=== PATIENT | male | born 1950 | race Caucasian/White ===

== ENCOUNTER 2017-12-01 15:53 | Inpatient (IN) ==
[2017-12-01] MEDS ORDERED: Naloxone 0.4 MG/ML INJ IVP PRN (19:55)
[2017-12-01] MEDS ORDERED: *HR* OxyCODONE Immed Rel 5 MG TABLET PO PRN (19:55)
[2017-12-01] MEDS ORDERED: Acetaminophen 325 MG TABLET PO PRN (19:55)
--- NOTE | 2017-12-01 20:08 | Internal Med History&Physical ---
Date of Encounter: 12/01/17 Time of Encounter: 19:20 Internal Medicine - H&P: HPI Chief complaint: SOB Admitted From: Hospital to Hospital Transfer Plans for Post Hospital Care: Home History of present illness: Mr. Mckeon is a 67 year old male who presents in transfer from [facility] ER. He presented there today with complaints of shortness of breath, especially with exertion. Symptoms started about 2 - 3 weeks ago and have progressively worsened. He was using his brother's oxygen for relief of dyspnea, but that did not help. Because of persistent and worsening dyspnea, he came to the ER for evaluation. He was found to have evidence of new onset atrial fibrillation with rapid ventricular response. He was started on Cardizem drip and transferred to [facility] for ongoing care. Upon my assessment of the patient, he is still short of breath and wheezing audibly. He denies any chest pain. Heart rate is down to between 90s to 120s presently and appears to be irregularly irregular on telemetry. He has never been diagnosed with any kind of heart disease or heart rhythm problems. He does not have a PCP and has not seen a doctor in quite some time. He takes no chronic medications other than occasional inhaler for his COPD. He denies any chest pain or pressure and only complains of shortness of breath, mostly with exertion. He does also state he had some left lower lower extremity swelling earlier in the week last week but that has resolved. He denies any generalized edema or anasarca. His daughter is present who also confirms the history. Past Med Surg Social Fam HX - Past Medical History Attestation: Yes The following information was validated with the patient. Source: patient, obtained from family, other ([place] [facility] records) Medical history: COPD Psychiatric history: no psych history - Past Surgical History Surgical History: tonsilectomy - Social History Smoking Status: Former smoker (smoked 50+ years; quit May,) Smokeless Tobacco Status: No Alcohol use: occasionally Drug use: none Occupational status: retired Current living situation: Home Activity Level: Independent ambulation Recent Out of Country Travel Within the Last 8 Weeks: No - Family History Mother Living Status: Hx Family Cardiac Disorders: No Hx Family Respiratory Disorders: No Hx Family Cancer: Yes (lung ) Father Living Status: Hx Family Cardiac Disorders: No Hx Family Respiratory Disorders: No Internal Medicine - H&P: Meds Albuterol Sulfate [Albuterol Inhaler] 1 puff IH Q4H PRN 12/01/17 [History] 3 Allergy/AdvReac Type Severity Reaction Status Date / Time No Known Allergies Allergy Verified 12/01/17 11:50 - Constitutional Constitutional: no chills, no fever(s), no night sweats - EENT Eyes: no blurry vision, no change in vision Ears: no ear pain, no tinnitus Nose, mouth and throat: no nasal congestion, no sinus pressure, no sore throat - Cardiovascular Cardiovascular ROS IM: dyspnea, dyspnea on exertion, edema (LLE ), lightheadedness, no chest pain, no palpitations, no paroxysmal nocturnal dyspnea , no syncope - Respiratory Respiratory: dyspnea, dyspnea on exertion, wheezing, no cough, no hemoptysis, no pain on inspiration, no chest congestion, no excessive phlegm production, no change in phlegm color, no pain with cough - Gastrointestinal Gastrointestinal: bloating, no abdominal pain, no constipation, no diarrhea, no melena, no nausea, no vomiting - Genitourinary Genitourinary ROS male: no dysuria, no flank pain, no hematuria - Musculoskeletal Musculoskeletal ROS IM: no back pain, no joint swelling, no muscle weakness, no myalgias - Integumentary Integumentary IM: no rash, no jaundice - Neurological Neurological ROS: no dizziness, no focal weakness, no frequent falls, no headache(s) - Psychiatric Psychiatric: no anxiety, no depression - Endocrine Endocrine IM: no polydipsia, no polyuria - Hematologic/Lymphatic Hematologic/Lymphatic: no easy bruising - Allergic/Immunologic Allergic/Immunologic: wheezing, no GI upset with certain foods - Constitutional General appearance: Present: cooperative, mild distress, A&O X 3, pleasant, answers questions appropriately - Head Head exam: Present: atraumatic, normal inspection - Eye Eye exam: Present: EOMI, normal appearance, PERRL. Absent: scleral icterus Pupils: Present: normal accommodation - ENT ENT exam: Present: mucous membranes dry, normal exam, normal oropharynx - Neck Neck exam general surgery: Present: full ROM, supple. Absent: lymphadenopathy, thyromegaly - Expanded Neck Exam Neck exam: Absent: carotid bruit - Respiratory Respiratory exam: Present: decreased breath sounds, prolonged expiratory phase, respiratory distress (mild), wheezes, tachypnea. Absent: chest wall tenderness , rales, rhonchi - Cardiovascular Cardiovascular exam: Present: distant heart sounds, irregular rhythm, tachycardia (90-110's). Absent: diastolic murmur, JVD, systolic murmur - GI/Abdominal GI/Abdominal exam: Present: normal bowel sounds, soft. Absent: guarding, hepatomegaly, rebound, splenomegaly, tenderness - Extremities Exam Extremities exam: Present: full ROM, normal capillary refill, warm, radial pulses palpable and symmetrical. Absent: calf tenderness, joint swelling, pedal edema, tenderness Additional comments: BLE appears symmetrical and without any appreciable edema - Back Exam Back exam: Present: normal inspection. Absent: CVA tenderness (L), CVA tenderness (R) - Neurological Exam Neurological exam: Present: alert, oriented X3, no focal deficits - Psychiatric Psychiatric exam: Present: normal affect, normal mood - Skin Skin exam: Present: dry, warm. Absent: rash Internal Med - H&P Results - Labs Labs: I reviewed the labs from [place] and include the following: WBC 8.5 Hemoglobin 15.8 Hematocrit 48.2 Platelet 331 Differential normal PT 11.8 INR 1.1 Sodium 138 Potassium 4.5 Chloride 101 Carbon Dioxide 31 BUN 15 Creatinine 1.02 Troponin less than 0.03 EKG read as atrial fibrillation with rapid ventricular response per cardiology - - EKG is not available for personal review. - Diagnostic Studies Chest x-ray Status: image reviewed by me (negative) - Assessment and plan (1) Atrial fibrillation with RVR Current Visit: Yes Status: Acute Assessment and plan: 1. Will start low dose Beta xuan and monitor closely. 2. Will trend troponins, EKG's, and order ECHO. 3. Consult cardiology due to new onset Atrial Fibrillation and possible candidate for cardioversion. 4. Will need stress test and/or LHC in the near future once acute process stabilized -- can be done as outpatient. (2) Acute exacerbation of chronic obstructive pulmonary disease (COPD) Current Visit: Yes Status: Acute Assessment and plan: 1. Will treat with IV steroids and Xopenex aerosols (due to new onset atrial fibrillation). 2. I do not appreciate the need for antibiotics at this time as I do not suspect an infectious process. 3. Monitor clinically. 4. Oxygen as needed for support. (3) Edema of left lower extremity Current Visit: Yes Status: Suspected Assessment and plan: 1. Will order BLE Dopplers. 2. On exam, I do not appreciate any asymmetry. Nonetheless, will order Dopplers as above. 3. If Dopplers positive for DVT, patient will need work-up/imaging to rule out PE. (4) DVT prophylaxis Current Visit: Yes Status: Acute Assessment and plan: 1. Full dose Lovenox to be started tonight due to new onset atrial fibrillation (1mg/kg/dose).
[2017-12-01] MEDS: *HR* Enoxaparin 100 MG/ML SYRINGE SQ SCH (20:30)
[2017-12-01] MEDS: Levalbuterol Neb 1.25 MG/3 ML IH SCH ×2 (22:04→22:05)
[2017-12-02 02:10] LABS: Basophils % 0.5 %; Eosinophils # 0.1 K/mcL (0.0-0.6); Eosinophils % 1.4 %; Hematocrit 42.3 % (37.5-50.1); Hemoglobin 13.8 g/dL (12.9-16.9); Immature Granulocytes % 0.4 % (0-4); Lymphocytes # 2.8 K/mcL (0.6-4.6); Lymphocytes % 37.4 %; Mean Corpuscular HGB Conc 32.6 g/dL (31.6-35.5); Mean Corpuscular Hemoglobin 29.6 pg (28.0-33.3); Mean Corpuscular Volume 90.8 fL (83.0-100.0); Mean Platelet Volume 8.8 fL (9.4-12.4); Monocytes # 0.7 K/mcL (0.0-1.3); Monocytes % 8.6 %; Neutrophils # 3.9 K/mcL (1.6-8.9); Platelet Count 287 K/mcL (140-400); Red Blood Count 4.66 M/mcL (4.19-5.50); Red Cell Distribution Width 12.8 % (11.5-14.5); Segmented Neutrophils % 51.7 %
[2017-12-02 02:17] LABS: INR 1.1; Prothrombin Time 12.1 Seconds (9.4-12.1)
[2017-12-02 02:19] LABS: Activated Partial Thrombo Time 42.2 Seconds (26.0-36.0)
[2017-12-02 02:29] LABS: Alanine Aminotransferase 17 Units/L (7-52); Albumin 3.5 g/dL (3.5-5.7); Albumin/Globulin Ratio 1.3 (1.1-2.2); Alkaline Phosphatase 50 Units/L (34-104); Aspartate Amino Transferase 13 Units/L (13-39); BUN/Creatinine Ratio 14 (6-26); Bilirubin,Total 0.5 mg/dL (0.3-1.0); Blood Urea Nitrogen 13 mg/dL (8-23); Calcium 8.8 mg/dL (8.6-10.3); Carbon Dioxide 28 mEq/L (23-29); Chloride 104 mEq/L (98-107); Chol/HDL Ratio 3.4 (0-4.9); Cholesterol 182 mg/dL (< 200); Globulin 2.7 g/dL (2.4-3.5); Glucose 108 mg/dL (70-105); HDL Cholesterol 53 mg/dL (40-59); LDL Cholesterol,Calculated 107 mg/dL (0-99); Osmolality,Calculated 285 (280-300); Potassium 4.3 mEq/L (3.5-5.1); Sodium 137 mEq/L (136-145); Total Protein 6.2 g/dL (6.4-8.9); Triglycerides 112 mg/dL (< 150); eGFR For African Americans > 60 (> 60); eGFR For Non-African Americans > 60 (> 60)
[2017-12-02] MEDS: Levalbuterol Neb 1.25 MG/3 ML IH SCH ×4 (03:29→22:24)
[2017-12-02] MEDS: *HR* Enoxaparin 100 MG/ML SYRINGE SQ SCH (05:09)
[2017-12-02] MEDS ORDERED: methylPREDNISolone 125 MG/2 ML VIAL IVP SCH (06:00)
--- NOTE | 2017-12-02 09:35 | Cardiology Consult Note ---
Date of Encounter: 12/02/17 Time of Encounter: 09:33 Assessment and Plan (1) Atrial fibrillation with RVR Current Visit: Yes Status: Acute New onset A-Fib RVR in setting of COPD exacerbation--likely driving factor. K 4.3, Mag 2.0, check TSH. HR at bedside 140s. Currently only on PO Lopressor 12.5mg BID. Give Cardizem bolus 10mg once, then start Cardizem gtt in attempt to rate control. Daughter at bedside, reports last night while sleeping his oxygen would drop into the 80s, snoring. Suspect underlying ARSENIO, recommend outpt sleep study. TTE to evaluate structure and function once better rate controlled. Troponins negative x 3. [id number] is 1 (Age). Currently on therapeutic lovenox. If [id number] remains a 1, ASA only. Continue to follow. Discussion w patient/family: The assessment and plan as outlined above was discussed with the patient and/or family members who expressed understanding and agreement. All questions were answered. Thank you for involving us in the care of your patient. Please call with any questions. I will discuss all the above with Dr. Tirado and make changes as necessary. History of Present Illness Consult date: 12/02/17 Requesting physician: Anil Koehler Consult reason: A-Fib RVR Chief complaint: dyspnea History of present illness: Mr. Mckeon is a 67 year old male with known PMH of prior tobacco abuse that presented in transfer from [place] ER after presenting with complaints of shortness of breath, worse on exertion. Symptoms started about 2-3 weeks ago and have progressively worsened. He was found to have new onset A-Fib RVR. Cardiology consulted for further recs. Pt also diagnosed with COPD exacerbation. Pt denies chest pain or palpitations. Reports he had unilateral leg swelling in his left leg, now resolved. He does not have a PCP, has not been seen by a provider in some time. No known prior cardiac hx. HR at bedside 140s, A-Fib. Past Med Surg Social Fam HX - Past Medical History Medical history: COPD Psychiatric history: no psych history - Past Surgical History Surgical History: tonsilectomy - Social History Smoking Status: Former smoker (smoked 50+ years; quit May,) Smokeless Tobacco Status: No Alcohol use: occasionally Drug use: none - Family History Mother Living Status: Hx Family Cardiac Disorders: No Hx Family Respiratory Disorders: No Hx Family Cancer: Yes (lung ) Father Living Status: Hx Family Cardiac Disorders: No Hx Family Respiratory Disorders: No Medications and Allergies Albuterol Sulfate [Albuterol Inhaler] 1 puff IH Q4H PRN 12/01/17 [History] 3 Allergy/AdvReac Type Severity Reaction Status Date / Time No Known Allergies Allergy Verified 12/01/17 11:50 All Systems Review: The remainder of the systems were reviewed and are negative - Cardiovascular Cardiovascular: as per HPI, dyspnea at rest, dyspnea on exertion, leg edema - Respiratory Respiratory: dyspnea Physical Examination Vital Signs, Last 4 Hours Temp Pulse Resp BP Pulse Ox 12/02/17 06:41 97.9 F 125 18 120/84 97 Vital Signs Temp Pulse Resp BP Pulse Ox 12/02/17 06:41 97.9 F 125 18 120/84 97 12/02/17 04:40 97.8 F 110 20 101/73 94 12/02/17 03:29 17 97 12/01/17 23:42 97.8 F 114 20 109/84 97 12/01/17 22:05 17 126/98 97 12/01/17 20:30 97 12/01/17 20:14 98.6 F 107 19 126/98 97 Intake and Output 12/01/17 12/02/17 12/02/17 23:59 07:59 15:59 Intake Total 360 / 360 Output Total 200 / 200 Balance -200 / -200 360 / 360 Intake: Oral 360 / 360 Output: Urine 200 / 200 Other: Meal Breakfast Percent of Meal Consumed 100% Weight 92.7 kg 91.9 kg Blood Glucose* 102 Patient Weight 12/02/17 23:59 Weight 91.9 kg General: Conversant, No Apparent Distress HEENT: Atraumatic, Normocephaly, Mucus Membranes Moist Neck: No JVD, Normal carotid pulses Cardiac: Other (irregularly irregular) Lungs: Other (diminished) Neuro: Alert and responsive, No focal deficits noted Abdomen: Soft, Non-Tender Skin: No rashes noted on visualized skin Musculoskeletal: No Chest Wall Tenderness Extremities: No Clubbing, No Cyanosis, No Edema, Normal Pulses Results 12/02/17 01:58 12/02/17 01:58 Lab Results 12/01/17 12/02/17 12/02/17 20:21 01:58 01:58 WBC 7.6 Hgb 13.8 D Hct 42.3 Plt Count 287 INR APTT Sodium Potassium Chloride Carbon Dioxide BUN Creatinine Glucose Calcium Magnesium Total Bilirubin AST ALT Alkaline Phosphatase Troponin I < 0.03 < 0.03 12/02/17 12/02/17 12/02/17 01:58 01:58 07:17 WBC Hgb Hct Plt Count INR 1.1 APTT 42.2 H Sodium 137 Potassium 4.3 Chloride 104 Carbon Dioxide 28 BUN 13 Creatinine 0.90 Glucose 108 H Calcium 8.8 Magnesium 2.0 Total Bilirubin 0.5 AST 13 ALT 17 Alkaline Phosphatase 50 Troponin I < 0.03 Short CBC 12/02/17 Range/Units 01:58 WBC 7.6 (4.3-11.1) K/mcL Hgb 13.8 D (12.9-16.9) g/dL Hct 42.3 (37.5-50.1) % Plt Count 287 (140-400) K/mcL Neutrophils # 3.9 (1.6-8.9) K/mcL BMP 12/02/17 Range/Units 01:58 Sodium 137 (136-145) mEq/L Potassium 4.3 (3.5-5.1) mEq/L Chloride 104 (98-107) mEq/L Carbon Dioxide 28 (23-29) mEq/L BUN 13 (8-23) mg/dL Creatinine 0.90 (0.70-1.30) mg/dL Glucose 108 H (70-105) mg/dL Calcium 8.8 (8.6-10.3) mg/dL Cardiac Enzymes 12/02/17 12/02/17 12/01/17 Range/Units 07:17 01:58 20:21 Troponin I < 0.03 < 0.03 < 0.03 (< 0.04) ng/mL Liver Function 12/02/17 Range/Units 01:58 Total Bilirubin 0.5 (0.3-1.0) mg/dL AST 13 (13-39) Units/L ALT 17 (7-52) Units/L Alkaline Phosphatase 50 (34-104) Units/L Albumin 3.5 (3.5-5.7) g/dL Active Medications Acetaminophen (Tylenol) 650 mg PO Q6HR PRN PRN Reason: Mild Pain/Fever Stop: 06/02/18 19:56 Aspirin (Aspirin) 81 mg PO DAILY [facility] Stop: 06/03/18 09:01 Enoxaparin Sodium (Lovenox) 90 mg 1 mg/kg (90 mg) SQ Q12HR DOUGLAS PRN Reason: Protocol Stop: 06/02/18 20:00 Last Admin: 12/02/17 05:09 Dose: 90 mg Diltiazem HCl 125 mg/ Sodium (Chloride) 125 mls @ 5 mls/hr IVC .Q24H DOUGLAS; 5 MG/ HR PRN Reason: Protocol Stop: 06/03/18 09:46 Levalbuterol HCl (Xopenex) 1.25 mg IH [id number] [facility] Stop: 06/02/18 20:01 Last Admin: 12/02/17 03:29 Dose: 1.25 mg Methylprednisolone (Solu-Medrol) 60 mg IVP Q12HR DOUGLAS Stop: 06/03/18 06:01 Last Admin: 12/02/17 05:09 Dose: 60 mg Metoprolol Tartrate (Lopressor) 12.5 mg PO BID [facility] Stop: 06/02/18 20:01 Last Admin: 12/01/17 22:36 Dose: Not Given Metoprolol Tartrate (Lopressor) 5 mg IVP Q5MIN [facility] Stop: 12/04/17 09:16 Naloxone HCl (Narcan) 0.4 mg IVP Q2MIN PRN PRN Reason: SEE COMMENTS Stop: 06/02/18 19:56 Oxycodone HCl (Roxicodone) 5 mg PO Q6HR PRN PRN Reason: Chest Pain Stop: 06/02/18 19:56 - EKG Interpretation EKG results cardiology: personally reviewed (A-Fib RVR HR 140s), other (12 hr tele AVG HR 105, A-Fib) Consult Discharge Plan - Plan Referrals: NONE,PCP [Primary Care Provider] - Cuba Carlson [Family Provider] -
[2017-12-02] MEDS: Aspirin 81 MG TAB.CHEW PO SCH (09:47)
[2017-12-02] MEDS: *HR* Metoprolol 5 MG/5 ML VIAL IVP SCH ×3 (09:49→10:36)
--- NOTE | 2017-12-02 13:40 | Pulmonology Consult Note ---
Date of Encounter: 12/02/17 Past Med Surg Social Fam HX - Past Medical History Medical history: COPD Psychiatric history: no psych history - Past Surgical History Surgical History: tonsilectomy - Social History Smoking Status: Former smoker (smoked 50+ years; quit May,) Smokeless Tobacco Status: No Alcohol use: occasionally Drug use: none - Family History Mother Living Status: Hx Family Cardiac Disorders: No Hx Family Respiratory Disorders: No Hx Family Cancer: Yes (lung ) Father Living Status: Hx Family Cardiac Disorders: No Hx Family Respiratory Disorders: No Medications and Allergies Albuterol Sulfate [Albuterol Inhaler] 1 puff IH Q4H PRN 12/01/17 [History] 3 Allergy/AdvReac Type Severity Reaction Status Date / Time No Known Allergies Allergy Verified 12/01/17 11:50 All Systems: The remainder of the systems were reviewed and are negative Physical Examination Vital Signs: Vital Signs, Last 4 Hours Temp Pulse Resp BP Pulse Ox 12/02/17 11:41 18 93 12/02/17 11:19 97.7 F 82 18 108/78 93 Results - Laboratory Findings CBC and BMP: 12/02/17 01:58 12/02/17 01:58 PT/INR, D-dimer PT 12.1 Seconds (9.4-12.1) 12/02/17 01:58 Abnormal lab findings: Abnormal lab results MPV 8.8 fL (9.4-12.4) L 12/02/17 01:58 APTT 42.2 Seconds (26.0-36.0) H 12/02/17 01:58 Glucose 108 mg/dL (70-105) H 12/02/17 01:58 Serum Total Protein 6.2 g/dL (6.4-8.9) L 12/02/17 01:58 LDL Cholesterol, Calc 107 mg/dL (0-99) H 12/02/17 01:58 - Clinical Findings Intake & Output: Intake & Output 12/01/17 12/02/17 12/02/17 23:59 07:59 15:59 Intake Total 360 / 360 Output Total 200 / 200 Balance -200 / -200 360 / 360 Weight 92.7 kg 91.9 kg Consult Discharge Plan - Plan Referrals: NONE,PCP [Primary Care Provider] - Cuba Carlson [Family Provider] -
[2017-12-02] MEDS ORDERED: Levalbuterol 1 PUFF INHALER IH PRN (14:11)
--- NOTE | 2017-12-02 14:13 | Pulmonology Consult Note ---
Addendum entered and electronically signed by Yunior Ceballos DO 12/02/17 15:36 : After further review, will d/c the prednisone. Addendum entered and electronically signed by Yunior Ceballos DO 12/02/17 15:18 : Recommend prednisone 60mg Daily x 5 days and d/c Original Note: <Yunior Ceballos - Last Filed: 12/02/17 14:37> Date of Encounter: 12/02/17 Time of Encounter: 14:09 Assessment and Plan (1) COPD (chronic obstructive pulmonary disease) Current Visit: Yes Status: Chronic Patient reports a diagnosis of COPD approximately 2 years ago. Former smoker with 50+ pack year history. Patient's been tobacco free for approximately a year. Chest x-ray on 12/01/17 reviewed that shows no acute intrathoracic process. Patient denies being prescribed home oxygen therapy. Patient does note improvement with aerosols. The patient's dyspnea is likely multifactorial in the setting of A. fib RVR with underlying COPD. Lower extremity Doppler was negative. The patient is not describing in increase or change in purulent sputum. At this point recommend against antibiotics. Consider if the patient has a fever, increased work of breathing, change or increase in sputum production. PLAN: -Agree with Solu-Medrol 60mg BID -Aerosols with Xopenex scheduled and prn. (Once adequate rate control may consider duonebs with albuterol) -Spiriva 18mg IH. -Titrate oxygen 92%-97% as needed- anticipate home oxygen -Recommend to follow up with Pulmonary upon discharge. Qualifiers: COPD type: unspecified COPD Qualified Code(s): J44.9 - Chronic obstructive pulmonary disease, unspecified History of Present Illness Consult date: 12/02/17 Requesting physician: Eugene Tirado Reason for consult: COPD Chief complaint: Dyspnea History of present illness: 67-year-old male former smoker with history of COPD diagnosed 2 years ago presents for evaluation of dyspnea. Patient was transferred from the [facility]. Patient states that he has felt short of breath since June of last year. States that his shortness of breath is mostly with exertion. Patient states that he has been using an inhaler at home which seems to intermittently improve his symptoms. Denies any fevers. Denies any chest pain. Patient notes productive sputum this morning but is otherwise been nonproductive. States these are former smoker with a 50+ pack year history. Patient states that he quit smoking approximately a year ago. Denies use of CPAP or prescribed oxygen therapy at home. States that he has been using his brothers oxygen at home as needed. Patient denies any history of A. fib or irregular heart rhythm. Patient also denies history of heart attacks. 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 Reports a family history of pulmonary fibrosis. Past Med Surg Social Fam HX - Past Medical History Medical history: COPD Psychiatric history: no psych history - Past Surgical History Surgical History: tonsilectomy - Social History Smoking Status: Former smoker (smoked 50+ years; quit May,) Smokeless Tobacco Status: No Alcohol use: occasionally Drug use: none - Family History Mother Living Status: Hx Family Cardiac Disorders: No Hx Family Respiratory Disorders: No Hx Family Cancer: Yes (lung ) Father Living Status: Hx Family Cardiac Disorders: No Hx Family Respiratory Disorders: No Medications and Allergies Albuterol Sulfate [Albuterol Inhaler] 1 puff IH Q4H PRN 12/01/17 [History] 3 Allergy/AdvReac Type Severity Reaction Status Date / Time No Known Allergies Allergy Verified 12/01/17 11:50 All Systems: The remainder of the systems were reviewed and are negative - Constitutional Constitutional: as per HPI, no fever(s) - EENT Eyes: as per HPI - Cardiovascular Cardiovascular: as per HPI, dyspnea, dyspnea on exertion, no chest pain, no chest pain at rest, no chest pain with activity - Respiratory Respiratory: cough, dyspnea, dyspnea on exertion, no change in phlegm color - Gastrointestinal Gastrointestinal: as per HPI - Genitourinary Genitourinary: as per HPI - Neurological Neurological: as per HPI Physical Examination Vital Signs: Vital Signs, Last 4 Hours Temp Pulse Resp BP Pulse Ox 12/02/17 11:41 18 93 12/02/17 11:19 97.7 F 82 18 108/78 93 General appearance: no acute distress Eyes: nonicteric ENT: oropharynx moist Neck: supple Effort: normal Inspection: normal Auscultation: bilateral: diminished breath sounds (prolonged expiratory phase) Cardiovascular: irregular rhythm Gastrointestinal: normoactive bowel sounds Integumentary: normal Extremities: no cyanosis Musculoskeletal: no deformities normal mental status, non-focal exam mood appropriate Results - Laboratory Findings CBC and BMP: 12/02/17 01:58 12/02/17 01:58 PT/INR, D-dimer PT 12.1 Seconds (9.4-12.1) 12/02/17 01:58 Abnormal lab findings: Abnormal lab results MPV 8.8 fL (9.4-12.4) L 12/02/17 01:58 APTT 42.2 Seconds (26.0-36.0) H 12/02/17 01:58 Glucose 108 mg/dL (70-105) H 12/02/17 01:58 Serum Total Protein 6.2 g/dL (6.4-8.9) L 12/02/17 01:58 LDL Cholesterol, Calc 107 mg/dL (0-99) H 12/02/17 01:58 - Diagnostic Findings Chest x-ray: report reviewed, image reviewed - Clinical Findings Intake & Output: Intake & Output 12/01/17 12/02/17 12/02/17 23:59 07:59 15:59 Intake Total 600 / 600 Output Total 200 / 200 Balance -200 / -200 600 / 600 Weight 92.7 kg 91.9 kg Consult Discharge Plan - Plan Referrals: NONE,PCP [Primary Care Provider] - Cuba Carlson [Family Provider] - Amy Paul MD [Partnered Physician] - <Amy Paul - Last Filed: 12/02/17 16:08> Date of Encounter: 12/02/17 Assessment and Plan (1) Suspected sleep apnea Current Visit: Yes Status: Suspected Sleep study will be done as outpatient and explained to patient and also his daughter at the bedside about diagnosis and treatment of sleep apnea especially with patient with atrial fibrillation. All Systems: The remainder of the systems were reviewed and are negative Physical Examination Vital Signs: Vital Signs, Last 4 Hours Temp Pulse Resp BP Pulse Ox 12/02/17 16:00 97.9 F 94 20 116/87 95 Results - Laboratory Findings CBC and BMP: 12/02/17 01:58 12/02/17 01:58 PT/INR, D-dimer PT 12.1 Seconds (9.4-12.1) 12/02/17 01:58 Abnormal lab findings: Abnormal lab results MPV 8.8 fL (9.4-12.4) L 12/02/17 01:58 APTT 42.2 Seconds (26.0-36.0) H 12/02/17 01:58 Glucose 108 mg/dL (70-105) H 12/02/17 01:58 Serum Total Protein 6.2 g/dL (6.4-8.9) L 12/02/17 01:58 LDL Cholesterol, Calc 107 mg/dL (0-99) H 12/02/17 01:58 - Clinical Findings Intake & Output: Intake & Output 12/02/17 12/02/17 12/02/17 07:59 15:59 23:59 Intake Total 600 / 600 Balance 600 / 600 Weight 91.9 kg - Attending Attestation I examined this patient and my medical decision-making was reviewed with the Resident Physician. I agree with the documented findings, disposition and treatment plan as described except to the extent set forth below. Patient seen and examined. Labs, radiology, chart personally reviewed. Agree with resident's history and physical, assessment, plan with following comments: ARTIST REPRESENTATIVE: Patient follows commands, Pulmonary: Acceptable oxygenation and ventilation and added Spiriva to the treatment. I do not feel strongly patient had COPD exacerbation and systemic steroids can be stopped. I suspect this patient has sleep-disordered breathing and workup needs to be done as outpatient. Patient will need also pulmonary function tests as outpatient. Thank you for the consultation and please call for any questions. Cardiovascular: A. fib fibrillation GI: Nutrition per dietary and GI prophylaxis per routine Heme: DVT prophylaxis per routine ID: Continue antibiotics and plan to de-escalation Renal; urine out put and renal funtion reviewed Endorcine: blood glucose is monitored Lines: all lines checked and no evidence of infections Skin: skin care to prevent pressure ulcers per nursing routine care
--- NOTE | 2017-12-02 14:29 | Internal Med Progress Note ---
<Davie Mccarthy T - Last Filed: 12/02/17 16:51> Date of Encounter: 12/02/17 - Assessment and plan (1) Atrial fibrillation with RVR Current Visit: Yes Status: Inactive (2) Acute exacerbation of chronic obstructive pulmonary disease (COPD) Current Visit: Yes Status: Acute (3) Edema of left lower extremity Current Visit: Yes Status: Suspected (4) DVT prophylaxis Current Visit: Yes Status: Acute - Time Spent With Patient Total time spent is greater than 50% in coordination of care (as documented) at patient's floor/unit and/or counseling patient: - Constitutional Vitals: Temp Pulse Resp BP Pulse Ox 97.9 F 94 18 116/87 96 12/02/17 16:00 12/02/17 16:00 12/02/17 16:06 12/02/17 16:00 12/02/17 16:06 Internal Medicine: Result - Labs CBC & Chem 7: 12/02/17 01:58 12/02/17 01:58 Labs: Short CBC 12/02/17 Range/Units 01:58 WBC 7.6 (4.3-11.1) K/mcL Hgb 13.8 D (12.9-16.9) g/dL Hct 42.3 (37.5-50.1) % Plt Count 287 (140-400) K/mcL Neutrophils # 3.9 (1.6-8.9) K/mcL BMP 12/02/17 01:58 Sodium 137 Potassium 4.3 Chloride 104 Carbon Dioxide 28 BUN 13 Creatinine 0.90 Glucose 108 H Calcium 8.8 Cardiac Enzymes 12/01/17 12/02/17 12/02/17 Range/Units 20:21 01:58 07:17 Troponin I < 0.03 < 0.03 < 0.03 (< 0.04) ng/mL Liver Function 12/02/17 Range/Units 01:58 Total Bilirubin 0.5 (0.3-1.0) mg/dL AST 13 (13-39) Units/L ALT 17 (7-52) Units/L Alkaline Phosphatase 50 (34-104) Units/L Albumin 3.5 (3.5-5.7) g/dL - ABG Interpretation ABG results: PT/INR, D-dimer PT 12.1 Seconds (9.4-12.1) 12/02/17 01:58 - Impressions Impressions Echocardiogram 12/02/17 14:00 Impressions: LVEF 55%. Normal LV chamber size, wall thickness and function. Indeterminate diastolic function. Normal right ventricular structure and function. No evidence of pulmonary hypertension. No significant valvular dysfunction. Left Ventricular Wall Motion: Rest Echo Findings All wall segments showed normal motion. Findings: Study Quality * Technically sub-optimal due to poor echocardiographic windows. ECG Findings * Atrial fibrillation. Left Ventricle * LVEF 55%. * Normal LV chamber size, wall thickness and function. * Indeterminate diastolic function. Right Ventricle * Normal right ventricular structure and function. Left Atrium * Mildly dilated left atrium. Right Atrium * Normal right atrial size. Aortic Valve * Trileaflet aortic valve. * No aortic regurgitation. * No aortic stenosis. Mitral Valve * Normal mitral valve structure and function. * No mitral regurgitation. * No mitral stenosis. Tricuspid Valve * Normal tricuspid valve structure and function. * Trace tricuspid regurgitation. * No evidence of pulmonary hypertension. Pulmonic Valve * Pulmonic valve is not well visualized. Aorta * Normally sized aortic root. Pericardium * The pericardium appears normal. IVC * Normal IVC dimensions and inspiratory collapse. Pulmonary Artery * Normal visualized portions of the main pulmonary artery. Consult Discharge Plan - Plan Referrals: Amy Paul MD [Partnered Physician] - NONE,PCP [Primary Care Provider] - Cuba Carlson [Family Provider] - - Attending Attestation I examined this patient 12/02, and my medical decision-making was reviewed with the Resident Physician. I agree with the documented findings, disposition and treatment plan as described except to the extent set forth below. 67-year-old male with medical history of COPD, former smoker admitted and being managed for new onset atrial fibrillation with rapid ventricular response as well as COPD exacerbation. Patient on Cardizem drip at time of evaluation, heart rate controlled. He has no new complaints, chest is clear to auscultation bilaterally. Labs and imaging reviewed: Unremarkable. NO DVT by Doppler USS Assessment and plan: Newly diagnosed atrial fibrillation with rapid ventricular response, follow echocardiogram, chart score is 1 for age, continue aspirin only. Discontinue Lovenox , continue prednisone for a total of 5 days continue breathing treatments. No indication for antibiotics as patient has no cough or sputum production. Cardiology evaluation appreciated. <Miguel Reddy - Last Filed: 12/02/17 18:31> Date of Encounter: 12/02/17 Time of Encounter: 10:55 - Assessment and plan (1) Atrial fibrillation with RVR Current Visit: Yes Status: Inactive Assessment and plan: Patient initially converted on Cardizem but was transitioned to metoprolol and did not successfully maintain rate control Urology was consulted, recommended Cardizem drip again as well as transition to by mouth Cardizem when the time is appropriate Echocardiogram is ordered and pending Patient is not likely candidate for anticoagulation due to [id number] score 1, however continue lovenox pending Echo report We transition the patient to oral Cardizem today, plan to do long-acting tomorrow (2) Acute exacerbation of chronic obstructive pulmonary disease (COPD) Current Visit: Yes Status: Acute Assessment and plan: Will treat with IV steroids and Xopenex aerosols (due to new onset atrial fibrillation). No apparent need for antibiotics at this time as we do not suspect an infectious process. Monitor clinically. Oxygen as needed for support Patient has shown significant improvement, does not have wheezes on exam today (3) Edema of left lower extremity Current Visit: Yes Status: Suspected Assessment and plan: Bilateral lower extremity Doppler ultrasound appears negative for DVT (4) DVT prophylaxis Current Visit: Yes Status: Acute Assessment and plan: Full dose Lovenox to be started tonight due to new onset atrial fibrillation ( 1mg/kg/dose). - Time Spent With Patient Total time spent is greater than 50% in coordination of care (as documented) at patient's floor/unit and/or counseling patient: - Subjective Interval history: The patient is seen and examined at bedside. He says that he is feeling significantly improved, and has no acute complaints at this time. - Constitutional Vitals: Temp Pulse Resp BP Pulse Ox 97.7 F 82 18 108/78 93 12/02/17 11:19 12/02/17 11:19 12/02/17 11:41 12/02/17 11:19 12/02/17 11:41 General appearance: Present: cooperative, mild distress, A&O X 3, pleasant, answers questions appropriately Exam: Gen.: Vitals noted. No acute distress. HEENT: PERRL/EOMI, oropharynx clear, Normocephalic, atraumatic Neck: Supple. No adenopathy. Cardiac: RRR, no murmur, +S1/S2 Pulmonary: CTA bilaterally, no wheezes, rales or rhonchi, equal chest expansion Abdomen: soft, nontender, BS noted, no guarding Back: Nontender throughout. MSK: ROM intact, no joint swelling noted Extremities: no BLE edema, nontender calf, no cyanosis or clubbing Neuro: A&Ox3, moves all extremities, no focal deficits Psych: Appropriate mood and behavior Internal Medicine: Result - Labs CBC & Chem 7: 12/02/17 01:58 12/02/17 01:58 Labs: Short CBC 12/02/17 Range/Units 01:58 WBC 7.6 (4.3-11.1) K/mcL Hgb 13.8 D (12.9-16.9) g/dL Hct 42.3 (37.5-50.1) % Plt Count 287 (140-400) K/mcL Neutrophils # 3.9 (1.6-8.9) K/mcL BMP 12/02/17 01:58 Sodium 137 Potassium 4.3 Chloride 104 Carbon Dioxide 28 BUN 13 Creatinine 0.90 Glucose 108 H Calcium 8.8 Cardiac Enzymes 12/01/17 12/02/17 12/02/17 Range/Units 20:21 01:58 07:17 Troponin I < 0.03 < 0.03 < 0.03 (< 0.04) ng/mL Liver Function 12/02/17 Range/Units 01:58 Total Bilirubin 0.5 (0.3-1.0) mg/dL AST 13 (13-39) Units/L ALT 17 (7-52) Units/L Alkaline Phosphatase 50 (34-104) Units/L Albumin 3.5 (3.5-5.7) g/dL - ABG Interpretation ABG results: PT/INR, D-dimer PT 12.1 Seconds (9.4-12.1) 12/02/17 01:58
[2017-12-02] MEDS: dilTIAZem HCl 60 MG TABLET PO SCH ×2 (18:21→20:14)
[2017-12-03] MEDS: Levalbuterol Neb 1.25 MG/3 ML IH SCH ×3 (04:30→15:13)
[2017-12-03 06:14] LABS: BUN/Creatinine Ratio 21 (6-26); Blood Urea Nitrogen 16 mg/dL (8-23); Calcium 8.9 mg/dL (8.6-10.3); Carbon Dioxide 26 mEq/L (23-29); Chloride 104 mEq/L (98-107); Glucose 157 mg/dL (70-105); Osmolality,Calculated 286 (280-300); Potassium 4.7 mEq/L (3.5-5.1); Sodium 136 mEq/L (136-145); eGFR For African Americans > 60 (> 60); eGFR For Non-African Americans > 60 (> 60)
--- NOTE | 2017-12-03 08:01 | Discharge Summary ---
<Miguel Reddy - Last Filed: 12/03/17 13:42> - NOTES TO OUTPATIENT PROVIDER Notes to Outpatient Provider: Started cardizem CD 240mg qd, told to keep a HR diary. Not started on Xarelto due to heavy alcohol ingestions (6-8 beers/day + moonshine). Gave nebulizer and duonebs, may benefit from intermission coordinator LAMA/LABA however cannot afford it at the moment. Admits to plan to be poorly compliant Orders not resulted at time of discharge: Pending orders 12/02/17 06:00 ECG 12 lead ECG [ECG] AM 0600 Date of Encounter: 12/03/17 Time of Encounter: 08:01 - Discharge Diagnosis (1) Atrial fibrillation with RVR Priority: Primary Status: Inactive Assessment and Plan: Patient initially converted on Cardizem but was transitioned to metoprolol and did not successfully maintain rate control Cardiology was consulted, recommended Cardizem drip again as well as transition to by mouth Cardizem when the time is appropriate Echocardiogram demonstrates grossly normal cardiac function and structure We placed the patient on cardizem CD 240mg which has adequately controlled his heart rate Cardiology did recommend anticoagulation with Xarelto for [id number] of 1 We spoke with the patient extensively, and he admits to very heavy daily drinking, and stated that he likely wouldn't comply with medications Because of its high risk nature and risk of hypercoaguability if stopped, we feel that it would be inappropriate to start the patient on anticoagulation at this time We will continue 81mg ASA Daily (2) Acute exacerbation of chronic obstructive pulmonary disease (COPD) Priority: Secondary Status: Acute Assessment and Plan: No apparent need for antibiotics at this time as we do not suspect an infectious process. Patient has shown significant improvement, does not have wheezes on exam today that are minimal Will send home with nebulizer and scheduled duonebs with prn albuterol inhaler Considered spiriva however it is cost prohibitive (3) Edema of left lower extremity Priority: Secondary Status: Suspected Assessment and Plan: Bilateral lower extremity Doppler ultrasound appears negative for DVT (4) Alcohol abuse Priority: Secondary Status: Acute Assessment and Plan: Patient admits to substantial alcohol use on final day of admission Says that he drinks 6-8 beers per day and at least one shot of moonshine per day , and more on weekends The patient has never had withdrawal symptoms, and does not indicate intention to stop Hospital course: Mr. Mckeon is a 67 year old male who was admitted to [facility] due to atrial fibrillation with RVR. He initially presented due to shortness of breath which had occurred over two weeks time. In addition to this, he has a history of COPD and alcoholism. Today he is examined at bedside and says that he feels completely better. He is no longer having shortness of breath, and he's not experiencing palpations. He has no acute complaints. More specific hospital course and discharge plan can be found under each assessment. - Time Spent with Patient Total time spent providing and/or coordinating discharge services: - Discharge Medications Prescriptions: Albuterol Neb [Proventil Neb] 2.5 mg IH Q4HR PRN #1 pkg PRN Reason: Shortness Of Breath Albuterol Sulfate [Albuterol Inhaler] 1 puff IH Q4H PRN #1 inhaler PRN Reason: Shortness Of Breath Aspirin 81 mg PO DAILY #30 tab.chew Diltiazem CD (24hr) [Cardizem CD] 240 mg PO DAILY #30 cap.er.24h Ipratropium/Albuterol Neb [Duoneb] 3 ml IH QID #3 pkg Home Medications: Acetaminophen [Tylenol] 650 mg PO Q6HR PRN tablet 12/03/17 [Rx] Albuterol Neb [Proventil Neb] 2.5 mg IH Q4HR PRN #1 pkg 12/03/17 [Rx] Albuterol Sulfate [Albuterol Inhaler] 1 puff IH Q4H PRN #1 inhaler 12/03/17 [Rx] Aspirin 81 mg PO DAILY #30 tab.chew 12/03/17 [Rx] Diltiazem CD (24hr) [Cardizem CD] 240 mg PO DAILY #30 cap.er.24h 12/03/17 [Rx] Ipratropium/Albuterol Neb [Duoneb] 3 ml IH QID #3 pkg 12/03/17 [Rx] Allergies/Adverse Reactions: 3 Allergy/AdvReac Type Severity Reaction Status Date / Time No Known Allergies Allergy Verified 12/01/17 11:50 Date of admission: 12/01/17 19:55 Primary care physician: PCP NONE Consults: 12/01/17 19:58 Consult to Physician [CONS] Routine Consulting Provider: Eugene Tirado Reason for Consult: new onset atrial fibrillation Call Completed: No 12/02/17 13:20 Consult to Pulmonology [CONS] Routine Consulting Provider: [facility] [place] Reason for Consult: copd Call Completed: Yes Discharging clinician: Miguel Reddy Anticipated date of discharge: 12/03/17 - Constitutional Vitals: Temp Pulse Resp BP Pulse Ox 97.7 F 84 18 110/77 98 12/03/17 04:21 12/03/17 04:21 12/03/17 04:30 12/03/17 04:21 12/03/17 04:30 General appearance: Present: cooperative, mild distress, A&O X 3, pleasant, answers questions appropriately Exam: Gen: Vitals noted. No acute distress. HEENT: PERRL/EOMI, oropharynx clear, Normocephalic, atraumatic Neck: Supple. No adenopathy. Cardiac: RRR, no murmur, +S1/S2 Pulmonary: Mild-moderate wheezing on lung exam prior to duoneb Abdomen: mildly distended and somewhat firm, nontender, BS noted, no guarding Back: Nontender throughout. MSK: ROM intact, no joint swelling noted Extremities: no BLE edema, nontender calf, no cyanosis or clubbing Neuro: A&Ox3, moves all extremities, no focal deficits Psych: Appropriate mood and behavior - Patient Status Disposition: Home, Self-Care Condition: Fair Functional capacity at discharge: independent ambulation Overall status at discharge: patient is back to baseline - Discharge Instructions Instructions: Atrial Fibrillation (DC), Chronic Obstructive Pulmonary Disease ( DC) Follow Up With: Rosetta Dupree CNP [Partnered Physician] - 12/08/17 11:00 am (please arrive 30 minutes early to fill out paper work and bring photo id, insurance card, list of medications ) Skylar Funk MD [Partnered Physician] - (office will call patient at home with appointment date and time) Additional Instructions: Continue medications as prescribed Cardizem once daily Breathing treatments every 6 hours Aspirin 81mg daily Monitor heart rate once daily, keep in journal Follow-up with Primary care, if he does not have one, follow-up with residency clinic in 3-5 days. Follow-up with Cardiology in 2-4 weeks For chest pains, shortness of breath, losses of consciousness, rapid heart rate , come to the ED Attempt to cut back on alcohol intake - Diet and Activity Activity: increase activity as tolerated Diet: regular diet <Jamison Mccarthyrewaju To - Last Filed: 12/03/17 16:51> Orders not resulted at time of discharge: Pending orders 12/02/17 06:00 ECG 12 lead ECG [ECG] AM 0600 Date of Encounter: 12/03/17 - Discharge Diagnosis (1) Atrial fibrillation with RVR Status: Inactive (2) Acute exacerbation of chronic obstructive pulmonary disease (COPD) Status: Acute (3) Edema of left lower extremity Status: Suspected (4) Alcohol abuse Status: Acute Hospital course: Mr. Mckeon is a 67 year old male Discharge discussed with: patient, family, nurse, social work, case management, big machine consultant - Time Spent with Patient Total time spent providing and/or coordinating discharge services: Greater than 30 minutes Date of admission: 12/01/17 19:55 Primary care physician: PCP NONE Consults: 12/01/17 19:58 Consult to Physician [CONS] Routine Consulting Provider: Eugene Tirado Reason for Consult: new onset atrial fibrillation Call Completed: No 12/02/17 13:20 Consult to Pulmonology [CONS] Routine Consulting Provider: [facility] Reason for Consult: copd Call Completed: Yes - Constitutional Vitals: Temp Pulse Resp BP Pulse Ox 97.6 F 82 12 102/78 96 12/03/17 16:26 12/03/17 16:26 12/03/17 16:26 12/03/17 16:26 12/03/17 16:26 - Attending Attestation I examined this patient and my medical decision-making was reviewed with the Resident Physician on 12/03/17. I agree with the documented findings, disposition and treatment plan as described except to the extent set forth below.
[2017-12-03] MEDS: dilTIAZem HCl 60 MG TABLET PO SCH (08:17)
[2017-12-03] MEDS: Aspirin 81 MG TAB.CHEW PO SCH (08:18)
[2017-12-03] MEDS ORDERED: Diltiazem CD (24hr) 240 MG CAPSULE PO SCH (09:00)
[2017-12-03] MEDS ORDERED: predniSONE 20 MG TABLET PO SCH ×2 (09:00)
[2017-12-03] MEDS ORDERED: Tiotropium 18 MCG inhalation IH SCH (10:00)
--- NOTE | 2017-12-03 10:15 | Cardiology Progress Note ---
Date of Encounter: 12/03/17 Time of Encounter: 10:12 Assessment and Plan (1) Atrial fibrillation with RVR Current Visit: Yes Status: Acute New onset A-Fib RVR in setting of COPD exacerbation--likely driving factor. K, Mag, and TSH within normal range. Was started on cardizem gtt yesterday, was turned off yesterday evening and started on PO Cardizem 30mg QID. 12 hr tele AVG HR 90, but HR at bedside currently low 100s-120s. Will stop short acting Cardizem and start Cardizem CD 240mg daily. Suspect underlying ARSENIO, recommend outpt sleep study. TTE EF preserved, no significant valvular dysfunction. [id number] is 1 (Age). Discussed with Dr. Tirado, recommend NOAC for CVA prevention, pt agreeable. R/B/A discussed. Pt currently does not have insurance , but is applying for Medicaid. Able to get 30 day free supply of Xarelto. Will start Xarelto and re-discuss coverage at outpt follow-up. Will check back later today and if rate controlled will sign off with outpt follow-up. Discussion w patient/family: The assessment and plan as outlined above was discussed with the patient and/or family members who expressed understanding and agreement. All questions were answered. Thank you for involving us in the care of your patient. Please call with any questions. I will discuss all the above with Dr. Tirado and make changes as necessary. Subjective Principal diagnosis: A-Fib Interval history: Pt denies acute complaints this AM. Dyspnea improved. Denies chest pain or palpitations. 12 hr tele AVG HR 90, A-Fib. Cardizem gtt was stopped yesterday evening and pt was started on Cardizem 30mg [id number]. HR at bedside low 100s- 120s. TTE resulted--EF 55%, no significant valvular dysfunction. Objective Vital Signs, Last 4 Hours Temp Pulse Resp BP Pulse Ox 12/03/17 08:20 96 12/03/17 08:03 97.6 F 130 20 123/81 96 Vital Signs Temp Pulse Resp BP Pulse Ox 12/03/17 08:20 96 12/03/17 08:03 97.6 F 130 20 123/81 96 12/03/17 04:30 18 98 12/03/17 04:21 97.7 F 84 18 110/77 97 05/09/18 23:33 97.6 F 90 18 108/77 99 12/02/17 22:24 16 98 12/02/17 20:14 94 12/02/17 20:00 97.6 F 119 18 129/76 94 12/02/17 16:06 18 96 12/02/17 16:00 97.9 F 94 20 116/87 95 12/02/17 11:41 18 93 12/02/17 11:19 97.7 F 82 18 108/78 93 Intake and Output 12/02/17 12/03/17 12/03/17 23:59 07:59 15:59 Intake Total 600 / 600 0 / 0 50 / 50 Output Total 600 / 600 900 / 900 0 / 0 Balance 0 / 0 -900 / -900 50 / 50 Intake: Oral 600 / 600 0 / 0 50 / 50 Output: Urine 600 / 600 900 / 900 0 / 0 Other: Meal Dinner Percent of Meal Consumed 100% # Voids 0 Weight 93.3 kg General: Conversant, No Apparent Distress HEENT: Atraumatic, Normocephaly, Mucus Membranes Moist Neck: No JVD, Normal carotid pulses Cardiac: Other (irregularly irregular) Lungs: Normal Breath Sounds, No Wheeze, Rales, Rhonchi Neuro: Alert and responsive, No focal deficits noted Abdomen: Soft, Non-Tender Skin: No rashes noted on visualized skin Musculoskeletal: No Chest Wall Tenderness Extremities: No Clubbing, No Cyanosis, No Edema, Normal Pulses Results 12/02/17 01:58 12/03/17 03:47 Lab Results 12/03/17 12/03/17 03:47 03:47 Sodium 136 Potassium 4.7 Chloride 104 Carbon Dioxide 26 BUN 16 Creatinine 0.75 Glucose 157 H Calcium 8.9 TSH 0.853 BMP 12/03/17 Range/Units 03:47 Sodium 136 (136-145) mEq/L Potassium 4.7 (3.5-5.1) mEq/L Chloride 104 (98-107) mEq/L Carbon Dioxide 26 (23-29) mEq/L BUN 16 (8-23) mg/dL Creatinine 0.75 (0.70-1.30) mg/dL Glucose 157 H (70-105) mg/dL Calcium 8.9 (8.6-10.3) mg/dL Impressions Echocardiogram 12/02/17 14:00 Impressions: LVEF 55%. Normal LV chamber size, wall thickness and function. Indeterminate diastolic function. Normal right ventricular structure and function. No evidence of pulmonary hypertension. No significant valvular dysfunction. Left Ventricular Wall Motion: Rest Echo Findings All wall segments showed normal motion. Findings: Study Quality * Technically sub-optimal due to poor echocardiographic windows. ECG Findings * Atrial fibrillation. Left Ventricle * LVEF 55%. * Normal LV chamber size, wall thickness and function. * Indeterminate diastolic function. Right Ventricle * Normal right ventricular structure and function. Left Atrium * Mildly dilated left atrium. Right Atrium * Normal right atrial size. Aortic Valve * Trileaflet aortic valve. * No aortic regurgitation. * No aortic stenosis. Mitral Valve * Normal mitral valve structure and function. * No mitral regurgitation. * No mitral stenosis. Tricuspid Valve * Normal tricuspid valve structure and function. * Trace tricuspid regurgitation. * No evidence of pulmonary hypertension. Pulmonic Valve * Pulmonic valve is not well visualized. Aorta * Normally sized aortic root. Pericardium * The pericardium appears normal. IVC * Normal IVC dimensions and inspiratory collapse. Pulmonary Artery * Normal visualized portions of the main pulmonary artery. Active Medications Acetaminophen (Tylenol) 650 mg PO Q6HR PRN PRN Reason: Mild Pain/Fever Stop: 06/02/18 19:56 Aspirin (Aspirin) 81 mg PO DAILY [facility] Stop: 06/03/18 09:01 Last Admin: 12/03/17 08:18 Dose: 81 mg Diltiazem HCl (Cardizem Cd) 240 mg PO DAILY [facility] Stop: 06/04/18 09:01 Last Admin: 12/03/17 10:01 Dose: 240 mg Levalbuterol HCl (Xopenex) 1.25 mg IH [id number] [facility] Stop: 06/02/18 20:01 Last Admin: 12/03/17 04:30 Dose: 1.25 mg Levalbuterol HCl (Xopenex) 2 puff IH [id number] PRN PRN Reason: Shortness Of Breath/Wheezing Stop: 06/03/18 16:01 Naloxone HCl (Narcan) 0.4 mg IVP Q2MIN PRN PRN Reason: SEE COMMENTS Stop: 06/02/18 19:56 Oxycodone HCl (Roxicodone) 5 mg PO Q6HR PRN PRN Reason: Chest Pain Stop: 06/02/18 19:56 Prednisone (Prednisone) 40 mg PO DAILY [facility] Stop: 12/06/17 09:01 Last Admin: 12/03/17 08:18 Dose: 40 mg Tiotropium David (Spiriva) 18 mcg IH DAILYR [facility] Stop: 06/04/18 10:01 - Imaging and Cardiology Echo: report reviewed - EKG Interpretation EKG results cardiology: other (12 hr tele AVG HR 90, A-Fib) Consult Discharge Plan - Plan Referrals: Amy Paul MD [Partnered Physician] - NONE,PCP [Primary Care Provider] - Prescriptions: Diltiazem CD (24hr) [Cardizem CD] 240 mg PO DAILY #30 cap.er.24h Rivaroxaban [Xarelto] 20 mg PO DAILY #30 tablet
--- NOTE | 2017-12-03 12:50 | Event Note ---
Date of Encounter: 12/03/17 Time of Encounter: 12:49 - Cardiology Event Note HR now 80s-90s on telemetry, A-Fib, on Cardizem CD 240mg daily for rate control and Xarelto for anticoagulation. Cardiology signing off. Reconsult PRN. Coordinated outpt follow-up in 2-3 weeks.
[2017-12-03 16:35] VITALS: BP 102/78
[2017-12-03] MEDS ORDERED: *HR* Rivaroxaban 10 MG TABLET PO SCH (17:00)
== END 2017-12-03 17:01 | disposition home or self-care (01) | DRG 309 ==
LOC: 2NENU
PROVIDERS: ADMIT Hospitalist; ATTEND Hospitalist

== ENCOUNTER 2020-01-16 20:01 | Inpatient (IN) ==
[2020-01-16] MEDS ORDERED: *HR* Promethazine 25 MG/ML VIAL IVP PRN (23:43)
[2020-01-16] MEDS ORDERED: Naloxone 0.4 MG/ML INJ IVP PRN (23:43)
[2020-01-17] MEDS ORDERED: Naloxone 0.4 MG/ML INJ IVP PRN (01:57)
[2020-01-17] MEDS ORDERED: D5% in Water 1,000 ML IVC PRN (02:31)
[2020-01-17] MEDS ORDERED: Dextrose Gel 15 GM/37.5 ML TUBE PO PRN ×2 (02:31)
[2020-01-17] MEDS ORDERED: *HR* Dextrose 50 % in Water (Vial) 50 ML VIAL IVP PRN (02:31)
[2020-01-17 03:14] LABS: Hematocrit 22.6 % (37.5-50.1); Hemoglobin 6.7 g/dL (12.9-16.9)
[2020-01-17] MEDS: Insulin LISPRO 300 UNITS/3 ML VIAL SQ SCH ×4 (05:25→15:24)
[2020-01-17 05:47] LABS: Basophils % 0.1 %; Hematocrit 21.8 % (37.5-50.1); Hemoglobin 6.4 g/dL (12.9-16.9); Immature Granulocytes % 3.8 % (0-4); Lymphocytes # 1.8 K/mcL (0.6-4.6); Lymphocytes % 10.4 %; Mean Corpuscular HGB Conc 29.4 g/dL (31.6-35.5); Mean Corpuscular Hemoglobin 23.9 pg (28.0-33.3); Mean Corpuscular Volume 81.3 fL (83.0-100.0); Mean Platelet Volume 8.6 fL (9.4-12.4); Monocytes # 0.4 K/mcL (0.0-1.3); Monocytes % 2.2 %; Neutrophils # 14.6 K/mcL (1.6-8.9); Nucleated Red Blood Cells 2.5 /100 WBC (0); Platelet Count 362 K/mcL (140-400); Red Blood Count 2.68 M/mcL (4.19-5.50); Red Cell Distribution Width 16.8 % (11.5-14.5); Segmented Neutrophils % 83.5 %
[2020-01-17 05:50] LABS: White Blood Count 17.5 K/mcL (4.3-11.1)
[2020-01-17] MEDS ORDERED: Pantoprazole 40 MG VIAL IVP SCH ×2 (06:00→21:00)
[2020-01-17] MEDS ORDERED: *HR* Metoprolol 5 MG/5 ML VIAL IVP SCH (06:00)
[2020-01-17 06:01] LABS: Alanine Aminotransferase 7 Units/L (7-52); Albumin/Globulin Ratio 1.5 (1.1-2.2); Alkaline Phosphatase 48 Units/L (34-104); Aspartate Amino Transferase 6 Units/L (13-39); BUN/Creatinine Ratio 42 (6-26); Bilirubin,Total 0.4 mg/dL (0.3-1.0); Blood Urea Nitrogen 49 mg/dL (8-23); Calcium 7.9 mg/dL (8.6-10.3); Carbon Dioxide 27 mEq/L (23-29); Chloride 100 mEq/L (98-107); Chol/HDL Ratio 4.3 (0-4.9); Cholesterol 111 mg/dL (< 200); Glucose 231 mg/dL (70-105); HDL Cholesterol 26 mg/dL (40-59); LDL Cholesterol,Calculated 40 mg/dL (0-99); Magnesium 1.6 mg/dL (1.6-2.6); Osmolality,Calculated 302 (280-300); Phosphorous 3.6 mg/dL (2.7-4.5); Potassium 3.9 mEq/L (3.5-5.1); Sodium 136 mEq/L (136-145); Triglycerides 224 mg/dL (< 150); eGFR For African Americans > 60 (> 60); eGFR For Non-African Americans > 60 (> 60)
[2020-01-17 06:19] LABS: Prothrombin Time 28.7 Seconds (9.4-12.1)
[2020-01-17 06:20] LABS: INR 2.5
[2020-01-17] MEDS ORDERED: 0.9 % Sodium Chloride 250 ML ONE ×2 (06:52→14:31)
[2020-01-17] MEDS ORDERED: Budesonide/Formoterol 160/4.5 1 PUFF INH IH ONE (07:12)
[2020-01-17] MEDS: Budesonide/Formoterol 160/4.5 1 PUFF INH IH SCH ×2 (07:22→21:43)
[2020-01-17] MEDS: Piperacillin/Tazobactam 3.375 GM in 0.9 % Sodium Chloride Mini Bag 100 ML IVPB SCH ×3 (07:47→23:56)
[2020-01-17] MEDS ORDERED: Octreotide 400 MCG in 0.9 % Sodium Chloride 100 ML IVC SCH (08:00)
[2020-01-17] MEDS: Pantoprazole 40 MG in 0.9 % Sodium Chloride Mini Bag 100 ML IVC SCH ×2 (08:09→12:57)
[2020-01-17] MEDS ORDERED: Acetaminophen 325 MG TABLET PO PRN (09:01)
[2020-01-17] MEDS ORDERED: *HR* Metoprolol 5 MG/5 ML VIAL IVP PRN (09:04)
[2020-01-17] MEDS ORDERED: Vancomycin 1,250 MG/262.5 ML IV.SOLN IVPB SCH (10:00)
[2020-01-17] MEDS: Ipratropium/Albuterol Neb 3 ML IH SCH ×3 (11:07→21:43)
[2020-01-17] MEDS: Sucralfate 1 GM TABLET PO SCH ×3 (11:51→22:20)
[2020-01-17 12:25] LABS: Hematocrit 31.2 % (37.5-50.1); Hemoglobin 9.6 g/dL (12.9-16.9)
[2020-01-17 12:30] LABS: INR 2.1; Prothrombin Time 23.6 Seconds (9.4-12.1)
[2020-01-17 13:41] LABS: Hepatitis B Core IgM Nonreactive (Nonreactive); Hepatitis C Virus Antibody Nonreactive (Nonreactive)
[2020-01-17 13:42] LABS: Hepatitis A Antibody IgM Nonreactive (Nonreactive)
[2020-01-17 14:13] LABS: Hepatitis B Surface Antigen Nonreactive (Nonreactive)
[2020-01-17] MEDS ORDERED: *HR* EPINEPHrine 1 MG/10 ML SYRINGE ONE (15:03)
[2020-01-17 18:22] LABS: Hematocrit 31.9 % (37.5-50.1); Hemoglobin 9.9 g/dL (12.9-16.9)
[2020-01-17] MEDS ORDERED: Insulin LISPRO 300 UNITS/3 ML VIAL SQ SCH (21:00)
[2020-01-18 00:30] LABS: Hematocrit 28.1 % (37.5-50.1); Hemoglobin 8.7 g/dL (12.9-16.9)
[2020-01-18] MEDS: Ipratropium/Albuterol Neb 3 ML IH SCH ×4 (04:03→21:51)
[2020-01-18 06:51] LABS: Basophils % 0.1 %; Eosinophils # 0.1 K/mcL (0.0-0.6); Eosinophils % 0.3 %; Hematocrit 29.3 % (37.5-50.1); Hemoglobin 9.2 g/dL (12.9-16.9); Immature Granulocytes % 1.7 % (0-4); Lymphocytes # 1.1 K/mcL (0.6-4.6); Lymphocytes % 6.3 %; Mean Corpuscular HGB Conc 31.4 g/dL (31.6-35.5); Mean Corpuscular Hemoglobin 26.7 pg (28.0-33.3); Mean Corpuscular Volume 85.2 fL (83.0-100.0); Mean Platelet Volume 8.8 fL (9.4-12.4); Monocytes # 1.3 K/mcL (0.0-1.3); Monocytes % 7.7 %; Neutrophils # 14.3 K/mcL (1.6-8.9); Nucleated Red Blood Cells 1.9 /100 WBC (0); Platelet Count 314 K/mcL (140-400); Red Blood Count 3.44 M/mcL (4.19-5.50); Red Cell Distribution Width 17.1 % (11.5-14.5); Segmented Neutrophils % 83.9 %; White Blood Count 17.1 K/mcL (4.3-11.1)
[2020-01-18 07:12] LABS: Alanine Aminotransferase 9 Units/L (7-52); Albumin 3.2 g/dL (3.5-5.7); Albumin/Globulin Ratio 1.6 (1.1-2.2); Alkaline Phosphatase 45 Units/L (34-104); Aspartate Amino Transferase 9 Units/L (13-39); BUN/Creatinine Ratio 34 (6-26); Bilirubin,Total 0.6 mg/dL (0.3-1.0); Blood Urea Nitrogen 32 mg/dL (8-23); Calcium 8.2 mg/dL (8.6-10.3); Carbon Dioxide 29 mEq/L (23-29); Chloride 100 mEq/L (98-107); Glucose 219 mg/dL (70-105); Magnesium 1.9 mg/dL (1.6-2.6); Osmolality,Calculated 298 (280-300); Phosphorous 3.8 mg/dL (2.7-4.5); Potassium 3.8 mEq/L (3.5-5.1); Sodium 137 mEq/L (136-145); Total Protein 5.2 g/dL (6.4-8.9); eGFR For African Americans > 60 (> 60); eGFR For Non-African Americans > 60 (> 60)
[2020-01-18] MEDS ORDERED: *HR* Promethazine 25 MG/ML VIAL IVP PRN (07:24)
[2020-01-18] MEDS ORDERED: Dextrose Gel 15 GM/37.5 ML TUBE PO PRN ×2 (07:24)
[2020-01-18] MEDS ORDERED: *HR* Dextrose 50 % in Water (Vial) 50 ML VIAL IVP PRN (07:24)
[2020-01-18] MEDS ORDERED: D5% in Water 1,000 ML IVC PRN (07:24)
[2020-01-18] MEDS ORDERED: Naloxone 0.4 MG/ML INJ IVP PRN (07:24)
[2020-01-18] MEDS ORDERED: Acetaminophen 325 MG TABLET PO PRN (07:24)
[2020-01-18] MEDS ORDERED: *HR* Metoprolol 5 MG/5 ML VIAL IVP PRN (07:24)
[2020-01-18] MEDS ORDERED: Insulin LISPRO 300 UNITS/3 ML VIAL SQ SCH ×2 (07:30→21:00)
[2020-01-18] MEDS: Piperacillin/Tazobactam 3.375 GM in 0.9 % Sodium Chloride Mini Bag 100 ML IVPB SCH ×3 (08:36→23:49)
[2020-01-18] MEDS: Sucralfate 1 GM TABLET PO SCH ×4 (08:37→21:19)
[2020-01-18] MEDS: DilTIAZem CD (24hr) 180 MG CAP.ER.24H PO SCH (08:37)
[2020-01-18] MEDS: Insulin LISPRO 300 UNITS/3 ML VIAL SQ SCH ×4 (08:37→21:18)
[2020-01-18] MEDS ORDERED: Pantoprazole 40 MG VIAL IVP SCH ×2 (09:00→18:00)
[2020-01-18] MEDS: Budesonide/Formoterol 160/4.5 1 PUFF INH IH SCH ×2 (09:39→21:51)
[2020-01-18 10:36] LABS: INR 1.3; Prothrombin Time 14.2 Seconds (9.4-12.1)
[2020-01-18 15:20] LABS: Hematocrit 31.5 % (37.5-50.1); Hemoglobin 9.3 g/dL (12.9-16.9)
[2020-01-18 17:56] LABS: Hematocrit 29.5 % (37.5-50.1)
[2020-01-19 01:05] LABS: Hematocrit 28.7 % (37.5-50.1); Hemoglobin 8.8 g/dL (12.9-16.9)
[2020-01-19 01:08] LABS: INR 1.1; Prothrombin Time 12.5 Seconds (9.4-12.1)
[2020-01-19] MEDS: Ipratropium/Albuterol Neb 3 ML IH SCH ×4 (04:02→21:36)
[2020-01-19 06:35] LABS: Hematocrit 31.1 % (37.5-50.1)
[2020-01-19] MEDS: Insulin LISPRO 300 UNITS/3 ML VIAL SQ SCH ×3 (08:09→16:54)
[2020-01-19] MEDS: DilTIAZem CD (24hr) 180 MG CAP.ER.24H PO SCH (08:10)
[2020-01-19] MEDS: Sucralfate 1 GM TABLET PO SCH ×4 (08:10→21:03)
[2020-01-19] MEDS: Piperacillin/Tazobactam 3.375 GM in 0.9 % Sodium Chloride Mini Bag 100 ML IVPB SCH (08:11)
[2020-01-19] MEDS: Budesonide/Formoterol 160/4.5 1 PUFF INH IH SCH ×2 (10:27→21:36)
[2020-01-19] MEDS ORDERED: *HR* Rivaroxaban 10 MG TABLET PO SCH (17:00)
[2020-01-20 01:36] LABS: Basophils % 0.1 %; Eosinophils # 0.1 K/mcL (0.0-0.6); Eosinophils % 0.8 %; Hematocrit 28.8 % (37.5-50.1); Hemoglobin 8.5 g/dL (12.9-16.9); Lymphocytes # 2.2 K/mcL (0.6-4.6); Mean Corpuscular HGB Conc 29.5 g/dL (31.6-35.5); Mean Corpuscular Hemoglobin 25.3 pg (28.0-33.3); Mean Corpuscular Volume 85.7 fL (83.0-100.0); Mean Platelet Volume 8.9 fL (9.4-12.4); Monocytes # 1.4 K/mcL (0.0-1.3); Monocytes % 8.7 %; Neutrophils # 12.7 K/mcL (1.6-8.9); Nucleated Red Blood Cells 0.9 /100 WBC (0); Platelet Count 275 K/mcL (140-400); Red Blood Count 3.36 M/mcL (4.19-5.50); Red Cell Distribution Width 17.4 % (11.5-14.5); Segmented Neutrophils % 76.4 %; White Blood Count 16.6 K/mcL (4.3-11.1)
[2020-01-20] MEDS: Ipratropium/Albuterol Neb 3 ML IH SCH ×2 (03:20→10:25)
[2020-01-20 04:19] VITALS: BP 100/59
[2020-01-20] MEDS: Insulin LISPRO 300 UNITS/3 ML VIAL SQ SCH ×2 (04:33→09:21)
[2020-01-20] MEDS: DilTIAZem CD (24hr) 180 MG CAP.ER.24H PO SCH (09:34)
[2020-01-20] MEDS: Sucralfate 1 GM TABLET PO SCH (09:34)
[2020-01-20] MEDS: Budesonide/Formoterol 160/4.5 1 PUFF INH IH SCH (10:24)
== END 2020-01-20 10:14 | disposition home or self-care (01) | DRG 811 ==
LOC: CDU → ICNU 01-17 01:00 → 3ANU 01-18 15:35
PROVIDERS: ADMIT Internal Medicine; ATTEND Internal Medicine

== ENCOUNTER 2021-02-05 00:17 | Observation (INO) ==
[2021-02-05] MEDS ORDERED: methylPREDNISolone 125 MG/2 ML VIAL IVP ONE (00:33)
[2021-02-05] MEDS ORDERED: Ipratropium/Albuterol Neb 3 ML IH ONE (00:33)
[2021-02-05 01:27] LABS: Basophils # 0.1 K/mcL (0.0-0.2); Basophils % 0.4 %; Eosinophils # 0.2 K/mcL (0.0-0.6); Eosinophils % 1.5 %; Hemoglobin 11.7 g/dL (12.9-16.9); Immature Granulocytes % 0.4 % (0-4); Lymphocytes # 2.9 K/mcL (0.6-4.6); Mean Corpuscular Volume 79.9 fL (83.0-100.0); Monocytes % 7.7 %; Neutrophils # 9.4 K/mcL (1.6-8.9); Platelet Count 358 K/mcL (140-400); Red Blood Count 4.88 M/mcL (4.19-5.50); Red Cell Distribution Width 14.9 % (11.5-14.5); White Blood Count 13.6 K/mcL (4.3-11.1)
[2021-02-05 01:50] LABS: BUN/Creatinine Ratio 24 (6-26); Blood Urea Nitrogen 27 mg/dL (8-23); Calcium 9.2 mg/dL (8.6-10.3); Carbon Dioxide 27 mEq/L (23-29); Chloride 99 mEq/L (98-107); Glucose 96 mg/dL (70-105); Osmolality,Calculated 289 (280-300); Sodium 137 mEq/L (136-145); eGFR For African Americans > 60 (> 60); eGFR For Non-African Americans > 60 (> 60)
[2021-02-05 01:52] LABS: Troponin I < 0.03 ng/mL (< 0.04)
[2021-02-05] MEDS ORDERED: 0.9 % Sodium Chloride 1,000 ML IVC ONE (02:00)
[2021-02-05] MEDS ORDERED: levoFLOXacin 750 MG/150 ML 750 MG/150 ML BAG IVPB ONE (02:00)
[2021-02-05] MEDS ORDERED: Albuterol 2.5 MG/3 ML NEBULIZER IH PRN (05:29)
[2021-02-05] MEDS ORDERED: Ondansetron 4 MG/2 ML VIAL IVP PRN (05:37)
[2021-02-05] MEDS ORDERED: Naloxone 0.4 MG/ML INJ IVP PRN (05:37)
[2021-02-05] MEDS ORDERED: Melatonin 3 MG TABLET PO PRN (05:37)
[2021-02-05] MEDS ORDERED: Acetaminophen 325 MG TABLET PO PRN (05:37)
[2021-02-05 07:52] LABS: Adenovirus Not Detected (Not Detect); Bordetella Pertussis Not Detected (Not Detect); Chlamydophila pneumoniae Not Detected (Not Detect); Coronavirus 229E Not Detected (Not Detect); Coronavirus HKU1 Not Detected (Not Detect); Coronavirus NL63 Not Detected (Not Detect); Coronavirus OC43 Not Detected (Not Detect); Human Metapneumovirus Not Detected (Not Detect); Human Rhinovirus/Enterovirus Not Detected (Not Detect); Influenza A Subtype 2009 H1 Not Detected (Not Detect); Influenza B Not Detected (Not Detect); Mycoplasma pneumoniae Not Detected (Not Detect); Parainfluenza Virus 1 Not Detected (Not Detect); Parainfluenza Virus 2 Not Detected (Not Detect); Parainfluenza Virus 3 Not Detected (Not Detect); Parainfluenza Virus 4 Not Detected (Not Detect); Respiratory Syncytial Virus Not Detected (Not Detect); SARS-CoV-2 Not Detected (Not Detect)
[2021-02-05] MEDS: DilTIAZem CD (24hr) 180 MG CAP.ER.24H PO SCH (07:56)
[2021-02-05] MEDS: Furosemide 40 MG TABLET PO SCH (07:57)
[2021-02-05] MEDS: predniSONE 20 MG TABLET PO SCH (07:57)
[2021-02-05] MEDS: *HR* Rivaroxaban 10 MG TABLET PO SCH (07:57)
[2021-02-05] MEDS: Aspirin 81 MG TAB.CHEW PO SCH (07:57)
[2021-02-05] MEDS: Albuterol 2.5 MG/3 ML NEBULIZER IH SCH ×5 (10:10→23:47)
[2021-02-05] MEDS: Azithromycin 250 MG TABLET PO SCH (11:56)
[2021-02-06] MEDS: Albuterol 2.5 MG/3 ML NEBULIZER IH SCH ×3 (04:03→12:00)
[2021-02-06 06:06] LABS: Basophils % 0.1 %; Hematocrit 33.4 % (37.5-50.1); Hemoglobin 10.4 g/dL (12.9-16.9); Immature Granulocytes % 0.5 % (0-4); Lymphocytes # 1.1 K/mcL (0.6-4.6); Lymphocytes % 8.6 %; Mean Corpuscular HGB Conc 31.1 g/dL (31.6-35.5); Mean Corpuscular Hemoglobin 24.8 pg (28.0-33.3); Mean Corpuscular Volume 79.5 fL (83.0-100.0); Monocytes # 0.5 K/mcL (0.0-1.3); Monocytes % 3.9 %; Neutrophils # 11.5 K/mcL (1.6-8.9); Platelet Count 354 K/mcL (140-400); Red Cell Distribution Width 14.9 % (11.5-14.5); Segmented Neutrophils % 86.9 %; White Blood Count 13.2 K/mcL (4.3-11.1)
[2021-02-06 06:25] LABS: Alanine Aminotransferase 11 Units/L (7-52); Albumin 3.4 g/dL (3.5-5.7); Albumin/Globulin Ratio 1.3 (1.1-2.2); Alkaline Phosphatase 68 Units/L (34-104); Aspartate Amino Transferase 9 Units/L (13-39); BUN/Creatinine Ratio 28 (6-26); Bilirubin,Total 0.4 mg/dL (0.3-1.0); Blood Urea Nitrogen 26 mg/dL (8-23); Calcium 8.7 mg/dL (8.6-10.3); Carbon Dioxide 29 mEq/L (23-29); Chloride 102 mEq/L (98-107); Globulin 2.7 g/dL (2.4-3.5); Glucose 158 mg/dL (70-105); Osmolality,Calculated 298 (280-300); Potassium 3.5 mEq/L (3.5-5.1); Sodium 140 mEq/L (136-145); Total Protein 6.1 g/dL (6.4-8.9); eGFR For African Americans > 60 (> 60); eGFR For Non-African Americans > 60 (> 60)
[2021-02-06 07:36] VITALS: TEMP 97.8
[2021-02-06] MEDS ORDERED: levoFLOXacin 750 MG/150 ML 750 MG/150 ML BAG IVPB SCH (09:00)
[2021-02-06] MEDS: DilTIAZem CD (24hr) 180 MG CAP.ER.24H PO SCH (09:18)
[2021-02-06] MEDS: predniSONE 20 MG TABLET PO SCH (09:19)
[2021-02-06] MEDS: Azithromycin 250 MG TABLET PO SCH (09:19)
[2021-02-06] MEDS: *HR* Rivaroxaban 10 MG TABLET PO SCH (09:19)
[2021-02-06] MEDS: Furosemide 40 MG TABLET PO SCH (09:19)
[2021-02-06] MEDS: Aspirin 81 MG TAB.CHEW PO SCH (09:19)
[2021-02-06 12:38] VITALS: BP 117/59; PULSE 92; O2SAT 96
== END 2021-02-06 16:26 | disposition home or self-care (01) ==
LOC: CDU 00:17 → EMEROOARM 00:17 → SUATTDRO 04:30 → CDU 04:45
PROVIDERS: ADMIT Internal Medicine; ATTEND Internal Medicine